=== PATIENT | male | born 1965 | race Caucasian/White ===

== ENCOUNTER → 2016-06-09 | Outpatient (CLI) | payer OTHER ==
[~2016-06-09] MED LIST: FLEXERIL PO; HYDROCHLOROTH12.5 M1 PO; LEVOTHYROXINE0.05 MG PO; LISINOPRIL10 MG PO; METFORMIN HCL500 MG PO; PRINIVIL20 MG PO; ROSUVASTATIN CAL5 MG PO
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
== END ==
LOC: PAIN 07:00
DX: M79.1 Myalgia (principal); R51 Headache